=== PATIENT | female | born 1985 | race Caucasian/White ===

== ENCOUNTER 2018-05-17 19:04 | Emergency (ER) | END 2018-05-17 22:07 | disposition home or self-care (01) ==

== ENCOUNTER 2018-10-15 21:20 | Outpatient (CLI) | payer MEDICAID ==
[~2018-10-15] VITALS: Ht 154.9 cm; Wt 92.4 kg
[~2018-10-15 21:20] MED LIST: ACET500C5 PO; PREN1TAB13 PO
[2018-10-15 21:42] VITALS: Ht 154.9 cm; Wt 92.4 kg
[2018-10-15 21:43] VITALS: BP 108/77; PULSE 93; RESP 17
[2018-10-15] MEDS ORDERED: TERBUTALINE 1 MG/ML INJ SC ONE (23:00)
--- NOTE | 2018-10-16 00:50 | PN ---
Triage Information Date/Time 10/16/18 Reason for visit: Uterine contractions Weeks of Gestation 38w /Para Diabetes: none Hypertention: none Additional information [id number] back pain and pelvic pain for 3days after lift heavy object Objective Vital Signs Date Temp Pulse Resp B/P (MAP) Pulse Ox O2 O2 Flow FiO2 Time Delivery Rate 10/15/18 97.8 93 17 108/77 Room Air 21:43 (87) Heart Rate: 140's Heart Rate Comments CAT I Contractions: >10 Minutes Apart Exam closed/long /-3 Results/Medications Results 24 hrs Laboratory Tests Test 10/15/18 22:49 Urine Color YELLOW Urine Clarity SLIGHTLY CLOUDY A Urine pH 7.0 Urine Specific [place] 1.006 Urine Ketones NEGATIVE Urine Nitrite NEGATIVE Urine Bilirubin NEGATIVE Urine Urobilinogen NEGATIVE Urine Leukocyte Esterase TRACE A Urine Microscopic RBC 0 Urine Microscopic WBC 3 Urine Squamous Epithelial Cells FEW Urine Mucus FEW A Urine Hemoglobin NEGATIVE Urine Glucose NEGATIVE Urine Total Protein NEGATIVE Disposition: Discharge Assessment/Plan A IUP 38w R/O labor x1 c/s NIL P discharge home after CMP drawn RTH prn with routine labor instructions JOSE LAL MD Oct 16, 2018 00:49
--- NOTE | 2018-10-16 04:50 | TRIAGE ---
OB Triage Datetime Report Generated by CPN: 10/16/2018 04:50 Datetime: 10/16/2018 00:40 Labor Evaluation Frequency: NONE Monitor Mode: External Resting Tone [place]: Relaxed Heart Rate FHR Baseline Rate: 135 Monitor Mode: External US Variability: Moderate 6-25 bpm Accelerations: 15X15 Decelerations: None Datetime: 10/16/2018 00:00 Labor Evaluation Frequency: X1 IN ONE HOUR Monitor Mode: External Duration (sec)2399: 60 Quality: Mild Resting Tone [place]: Relaxed Heart Rate FHR Baseline Rate: 135 Monitor Mode: External US Variability: Moderate 6-25 bpm Accelerations: 15X15 Decelerations: None Category: Category I Datetime: 10/15/2018 23:00 Labor Evaluation Frequency: X5 IN ONE HOUR Monitor Mode: External Duration (sec)2399: 50-70 Quality: Mild Resting Tone [place]: Relaxed Heart Rate FHR Baseline Rate: 135 Monitor Mode: External US Variability: Moderate 6-25 bpm Accelerations: 15X15 Decelerations: None Category: Category I Datetime: 10/15/2018 22:34 Vaginal Exam Dilatation (cms): 0.0 Effacement (%): 0 Station: -3 Exam By: EM Membrane Status: Intact Datetime: 10/15/2018 22:00 Labor Evaluation Frequency: X1 Monitor Mode: External Duration (sec)2399: 60 Quality: Mild Resting Tone [place]: Relaxed Heart Rate FHR Baseline Rate: 135 Monitor Mode: External US Variability: Moderate 6-25 bpm Accelerations: 15X15 Decelerations: None Category: Category I Datetime: 10/15/2018 21:44 Time of Arrival: 10/15/2018 21:15 EGA: 38.0 Arrived By: Wheelchair Arrived From: Emergency Dept Chief Complaint: PT PRESENTS TO TRIAGE WITH C/O UC'S SINCE 170, VOMITTING AND DIARRHEA Movement: Present Contractions: Irregular Rupture of Membranes: Denies Vaginal Bleeding: None Vaginal Discharge: Denies Recent Sexual Intercouse: Denies Abdominal Trauma: Not Applicable Patient Complaints: Contractions; Back Pain; Vomiting; Other Initial Plan: EFM Datetime: 10/15/2018 21:40 Stage of : OB Triage Assessment Type: Triage Maternal Assessment Level of Consciousness: Fully Conscious DTR's/Clonus: DTRs 2+; No Clonus Headache: Denies Blurred Vision: No Respiratory Effort: Unlabored; Regular Rhythm; Equal Expansion Breath Sounds, Left: Clear and Equal Breath Sounds, Right: Clear and Equal Nausea/Vomiting: Denies RUQ Epigastric Pain: Denies Lower Extremities Edema: None Degree: None Upper Extremities Edema: None Degree: None Facial Edema: None Temperature Route: Oral Fall Risk Assessment History of Falling: (0) No Secondary Diagnosis: (0) No Ambulatory Aid: (0) Bedrest/Nurse Assist IV Therapy: (0) No Gait: (0) Normal/Bedrest/Immobile Mental Status: (0) Oriented to Own Ability Fall Score: 0 Fall Risk Score Definition: No Risk: No action required Pain Assessment Pain Scale: 7 Pain Presence: Intermittent Pain Type: Contraction Pain Location: Abdomen; Back Pain Goal: 3 Pain Relief Measures: Comfort Measures Datetime: 10/15/2018 21:38 Contraction Comments: TOCO APPLIED Comments: US APPLIED Datetime: 07/20/2018 22:59 Fall Score: 0 Fall Risk Score Definition: No Risk: No action required
== END 2018-10-16 00:45 | disposition home or self-care (01) ==
LOC: OBT 21:20 → L-D 21:21 → OBT 10-16 00:45
PROVIDERS: ATTEND Obstetrics & Gynecology
DX: O62.9 Abnormality of forces of labor, unspecified (principal); Z3A.38 38 weeks gestation of pregnancy
CPT/HCPCS: 80053; 81001; 96372; G0463; J3105

== ENCOUNTER 2018-10-22 08:02 | Inpatient (IN) | payer MEDICAID ==
[~2018-10-22] VITALS: Ht 152.4 cm; Wt 92.2 kg
[~2018-10-22 08:02] MED LIST changes: +OXYTOCIN 30 UNITS/LR 500 ML BAG IV ONE
[2018-10-22 09:28] VITALS: BP 116/86; PULSE 85; RESP 18
[2018-10-22] MEDS ORDERED: MISOPROSTOL 200 MCG TAB PR PRN ×2 (09:30→18:30)
[2018-10-22] MEDS ORDERED: METHYLERGONOVINE 0.2 MG INJ IM PRN ×2 (09:30→18:30)
[2018-10-22] MEDS ORDERED: CARBOPROST 250 MCG INJ IM PRN ×2 (09:30→18:30)
[2018-10-22] MEDS ORDERED: OXYTOCIN 30 UNITS/LR 500 ML IV PRN ×2 (09:30→18:30)
[2018-10-22] MEDS: LACTATED RINGER'S 1,000 ML IV SCH ×2 (09:38→15:33)
[2018-10-22 10:01] VITALS: Ht 152.4 cm; Wt 92.2 kg
[2018-10-22] MEDS ORDERED: CEFAZOLIN 2 GM/50 ML (PMX) 50 ML IVPB SCH (10:30)
[2018-10-22] MEDS ORDERED: OXYTOCIN 30 UNITS/LR 500 ML IV SCH ×2 (10:30→18:30)
--- NOTE | 2018-10-22 10:47 | PREAC ---
Date/Time of Note Date/Time of Note DATE: 10/22/18 TIME: 10:46 Anesthesia Eval and Record Evaluation Time Pre-Procedure Interview DATE: 10/22/18 TIME: 10:46 Age 33 Sex female NPO: 8 hrs Preoperative diagnosis Repeat Planned procedure Past Medical History Past Medical History: Includes : : (3), Para: (2), Gestational age: (38) Surgery & Anesthesia Issues No known issue Meds Anticoagulation: No Beta Guillermina within 24 hr: No Reason Beta Guillermina not given: Pt. not on B-Guillermina Active Scripts Acetaminophen* (Tylophen*) 500 Mg Capsule, 1 CAP PO Q6H PRN for PAIN AND OR ELEVATED TEMP, #20 CAP Prov:PATRICIA BARRERA STAFFING ANALYST 05/17/18 Reported Medications Pnv95/Ferrous Fumarate/FA ( Vitamins Tablet) 1 Each Tablet, 1 EACH PO, TAB 07/20/18 Current Medications Lactated Ringer's 1,000 ml @ 125 mls/hr Q8H IV Last administered on 10/22/18at 09:38; Admin Dose 125 MLS/HR; Start 10/22/18 at 09:29 Oxytocin/Lactated Ringer's 500 ml @ 0 mls/hr ONCE PRN IV .VAGINAL BLEEDING; Start 10/22/18 at 09:30 Methylergonovine Maleate (Methergine) 0.2 mg ONCE PRN IM .VAGINAL BLEEDING; Start 10/22/18 at 09:30 Carboprost Tromethamine (Hemabate) 250 mcg ONCE PRN IM .VAGINAL BLEEDING; Start 10/22/18 at 09:30 Misoprostol (Cytotec) 1,000 mcg ONCE PRN DC .VAGINAL BLEEDING; Start 10/22/18 at 09:30 Cefazolin Sodium/ Dextrose 50 ml @ 100 mls/hr ONCE IVPB ; Start 10/22/18 at 10:30 Oxytocin/Lactated Ringer's 500 ml @ 125 mls/hr POST IV ; Start 10/22/18 at 10:30 Meds reviewed: Yes Allergies Coded Allergies: No Known Allergy (Unverified , 07/20/18) Allergies Reviewed: Yes Labs/Studies Labs Reviewed: Reviewed by anesthesiologist Result Diagram: 10/22/18 0840 Laboratory Tests 10/22/18 08:40 Blood Bank Test 10/22/18 08:40 Antibody Screen NEGATIVE Blood Type O POSITIVE Rh Immune Globulin Candidate NO test: Positive Studies: ECG (n/a), CXR (n/a) Pre-procedure Exam Last vitals Vital Signs Date Temp Pulse Resp B/P (MAP) Pulse Ox O2 O2 Flow FiO2 Time Delivery Rate 10/22/18 97.7 85 18 116/86 Room Air 09:28 (96) Airway: Adequate mouth opening, Adequate thyromental dist Mallampati: Mallampati II Teeth: Normal Lung: Normal Heart: Normal ASA Physical Status ASA physical status: 2 Emergency: None Planned Anesthetic Neuraxial: Spinal Planned Pain Management Sub-arachniod narcotics, Parenteral pain med Pre-operative Attestations Prior to commencing anesthesia and surgery, the patient was re-evaluated, there was verification of: *The patient's identity *The results of appropriate recent lab work and preoperative vital signs *The above evaluation not changing prior to induction *Anesthetic plan, risk benefits, alternative and complications discussed with patient/family; questions answered; patient/family understands, accepts and wis hes to proceed. LORENA LANE MD October 22, 2018 10:47
[2018-10-22] MEDS ORDERED: ONDANSETRON 4 MG INJ IV ONE (11:00)
[2018-10-22] MEDS ORDERED: CITRIC ACID/NA CITRATE 30 ML CUP PO ONE (11:00)
--- NOTE | 2018-10-22 13:46 | HP ---
Date/Time of Note Date/Time of Note DATE: 10/22/18 TIME: 13:45 OB - History Hx of Present Free Text/Dictation term Care: Good Care Ultrasounds: Normal mid trimester US Obstetrical Complications: None Medical Complications: None Past Family/Social History * Past Medical, Surgical, Family and Obstetric Histories reviewed from chart. OB Admission Exam Vital Signs Vital Signs Vital Signs Date Temp Pulse Resp B/P (MAP) Pulse Ox O2 O2 Flow FiO2 Time Delivery Rate 10/22/18 97.7 85 18 116/86 Room Air 09:28 (96) Physical Exam HEENT: WNL Heart: Rhythm Normal Lungs: Clear, Equal Abdomen: WNL Extremities: Normal Reflexes: Normal Cervical Dilatation: None Effacement: 0% Membranes: Intact Heart Rate: 130's Accelerations: Accelerations Present Decelerations: No Decelerations Contractions on Admission: None Last 72 hours Lab Results CBC & BMP 10/22/18 08:40 OB Assessment/Plan Reason for admission: section Plan: Section JAZ NAILS MD October 22, 2018 13:46
[2018-10-22] MEDS ORDERED: morphine SULFATE/PF (10 MG/10 ML) INJ ONE (13:55)
[2018-10-22] MEDS ORDERED: OXYTOCIN 10 UNIT INJ ONE (13:55)
[2018-10-22] MEDS ORDERED: PHENYLephrine (100 MCG/ML) 10ML SYG ONE ×2 (13:55→14:45)
[2018-10-22] MEDS ORDERED: DEXAMETHASONE 4 MG/ML 1 ML INJ ONE (14:38)
[2018-10-22] MEDS ORDERED: KETOROLAC 30 MG INJ ONE (14:38)
[2018-10-22] MEDS ORDERED: ONDANSETRON 4 MG INJ ONE (14:38)
[2018-10-22] MEDS ORDERED: METOCLOPRAMIDE 10 MG INJ ONE (14:38)
--- NOTE | 2018-10-22 14:44 | PAC ---
Date/Time of Note Date/Time of Note DATE: 10/22/18 TIME: 14:44 Post-Anesthesia Notes Post-Anesthesia Note Last documented vital signs Vital Signs Date Temp Pulse Resp B/P (MAP) Pulse Ox O2 O2 Flow FiO2 Time Delivery Rate 10/22/18 97.7 85 18 116/86 98 Room Air 14:48 (96) Activity: WNL Respiratory function: WNL Cardiovascular function: WNL Mental status: Baseline Pain reasonably controlled: Yes Hydration appropriate: Yes Nausea/Vomiting absent: Yes LORENA LANE MD October 22, 2018 14:44
[2018-10-22] MEDS ORDERED: EPHEDrine SULFATE 50 MG/5 ML SYG ONE (14:45)
--- NOTE | 2018-10-22 14:49 | OPR ---
Operative Report Planned Procedure Procedure date October 22, 2018 Procedure(s) repeat c/s Performed by see signature line Wheel Press Operator: ALEX CRUMP MD Pre-procedure diagnosis repeat c/s [id number] Anesthesia Type: [id number] spinal Post-Procedure Post-procedure diagnosis repeat c/s Findings Live Baby [], Apgars [] and [], weight [], position [], [] presentation []cord. Estimated Blood Loss: 600 - 700 mls Specimen(s) none Grafts/Implant(s) none Complication(s) none Procedure Description Under satisfactory [] anesthesia, the patient was prepped and draped and placed in a supine position, tilted to the left. Pfannenstiel incision was made, carried through the subcutaneous tissue. Bleeders brought under control with electrocautery. Fascia incised to the length of the incision. Rectus muscles from the fascia, divided midline. Peritoneum exposed, entered through a transverse incision. Exploration of abdomen revealed gravid uterus. Bladder flap was developed. Transverse incision was made in the lower segment of the uterus. Amniotic sac ruptured. [] amniotic fluid noted. [] Nasal oropharyngeal suction was performed. The baby was handed to the team for immediate attention. The placenta was delivered manually intact. Uterine cavity was cleaned with wet sponge and drainage established. Uterus closed in 2 layers using [] in continuous fashion. Peritoneal cavity irrigated with warm saline. Sponge, needle and instrument count reported to be correct. Abdominal peritoneum closed with [] continuously. Rectus muscle approximated with []. Fascia closed with [], and skin closed with ivan. Estimated blood loss []mL. Urine bag contained []mL of urine JAZ NAILS MD October 22, 2018 14:49
[2018-10-22] MEDS ORDERED: HYDROCODONE/APAP (5/325) TAB PO PRN ×2 (15:00→18:30)
[2018-10-22] MEDS ORDERED: ONDANSETRON 4 MG INJ IV PRN (15:00)
[2018-10-22] MEDS ORDERED: HYDROmorphONE 0.5 MG/0.5 ML SYG IV PRN ×2 (15:00)
[2018-10-22] MEDS ORDERED: ACETAMINOPHEN 500 MG TAB PO PRN (15:00)
[2018-10-22] MEDS ORDERED: NALOXONE (0.4 MG/ML) INJ IV PRN (15:00)
[2018-10-22] MEDS ORDERED: DIPHENHYDRAMINE 50 MG INJ IV PRN (15:00)
[2018-10-22] MEDS ORDERED: KETOROLAC 30 MG INJ IV PRN (15:00)
[2018-10-22] MEDS ORDERED: morphine 2 MG INJ IV PRN ×2 (15:00)
[2018-10-22] MEDS ORDERED: NALBUPHINE HCL (10 MG/1 ML) INJ IV PRN (15:00)
[2018-10-22 18:30] VITALS: BP 96/58; PULSE 83; RESP 17
[2018-10-22] MEDS ORDERED: NA PHOSPHATE/BIPHOS 133 ML ENEMA PR PRN (18:30)
[2018-10-22] MEDS ORDERED: NACL 0.9% 3 ML SYG IV SCH (18:30)
[2018-10-22] MEDS ORDERED: LACTATED RINGER'S 1,000 ML IV SCH (18:30)
[2018-10-22] MEDS ORDERED: LANOLIN HPA 1 PKT TOP PRN (18:30)
[2018-10-22 19:45] VITALS: BP 100/56; PULSE 86; RESP 18
[2018-10-22] MEDS: IBUPROFEN 800 MG TAB PO SCH (22:00)
[2018-10-23] VITALS: BP 96/52; PULSE 88; RESP 18
[2018-10-23 04:10] VITALS: BP 96/52; PULSE 88; RESP 16
[2018-10-23] MEDS: IBUPROFEN 800 MG TAB PO SCH ×3 (06:00→22:12)
[2018-10-23 08:30] VITALS: BP 86/51; PULSE 85; RESP 16
[2018-10-23 12:45] VITALS: BP 90/58; PULSE 86; RESP 18
[2018-10-23 16:00] VITALS: BP 93/53; PULSE 86; RESP 18
--- NOTE | 2018-10-23 19:09 | QN ---
Documentation Comment passing flatus no BM vss afebrile fundus firm abdomen soft wound healing lochia min calf neg A s/p Rc/s P as ordered JOSE LAL MD October 23, 2018 19:09
[2018-10-23 20:15] VITALS: BP 90/50; PULSE 85; RESP 18
[2018-10-24 04:10] VITALS: BP 90/59; PULSE 72; RESP 17
[2018-10-24] MEDS: IBUPROFEN 800 MG TAB PO SCH ×3 (05:17→23:19)
[2018-10-24 08:20] VITALS: BP 101/59; PULSE 89; RESP 19
[2018-10-24 16:10] VITALS: BP 99/60; PULSE 88; RESP 18
--- NOTE | 2018-10-24 17:30 | PN ---
Date/Time of Note Date/Time of Note DATE: 10/24/18 TIME: 17:28 OB Subjective Subjective Subjective Past flatus. Reports decreased vaginal bleeding. Denies any shortness of aubree ath or chest pain. Complain of slight more pain in the right side of the incision. Tolerated diet. Ambulating. Denies any other complaint. OB Objective Objective Objective General appearance: Alert and oriented x4 does not appear to be in any acute distress Abdomen: Soft, fundus appropriate tenderness and palpable below the umbilicus Incision: Clean dry and intact Breast: No evidence of mastitis or fissure Extremities: No calf tenderness, no click no edema no cord palpable VS - Last 72 Hours, by Label Date Temp Pulse Resp B/P (MAP) Pulse Ox O2 O2 Flow FiO2 Time Delivery Rate 10/24/18 98.1 89 19 101/59 Room Air 08:20 (73) 10/24/18 98.4 72 17 90/59 (69) Room Air 04:10 10/23/18 98.1 85 18 90/50 (63) Room Air 20:15 10/23/18 99.3 86 18 93/53 (66) 16:00 10/23/18 99.1 86 18 90/58 (69) 95 Room Air 12:45 10/23/18 98.7 85 16 86/51 (63) 94 Room Air 08:30 10/23/18 98.0 88 16 96/52 (67) 96 04:10 10/23/18 98.5 88 18 96/52 (67) Room Air 00:00 10/22/18 98.6 86 18 100/56 96 Room Air 19:45 (71) 10/22/18 98.4 83 17 96/58 (71) 96 Room Air 18:30 10/22/18 97.7 85 18 116/86 Room Air 09:28 (96) OB Assessment/Plan Other Assessment: postoperative day #2 Status post repeat section Doing well Anemia, postop, asymptomatic Routine postop care Iron twice a day with stool softener ALEX CRUMP MD October 24, 2018 17:30
[2018-10-24 20:00] VITALS: BP 101/58; PULSE 82; RESP 20
[2018-10-25 04:45] VITALS: BP 93/53; PULSE 77; RESP 20
[2018-10-25] MEDS: IBUPROFEN 800 MG TAB PO SCH (06:00)
[2018-10-25 08:15] VITALS: BP 118/69; PULSE 85; RESP 20
[2018-10-25] MEDS ORDERED: DIPHTH/TET/ACEL PERTUSS (ADULT) 0.5 ML VIAL IM* ONE (09:00)
[2018-10-25] MEDS ORDERED: MEASLES,MUMPS,RUBELLA VACCINE INJ SC* ONE (09:00)
--- NOTE | 2018-10-25 10:17 | QN ---
Documentation Comment P0D#3 is stable afebrile tolerates diet No VB +BM +voids VS stable Gen NAD Abd soft NT ND Incision intact Genitalia No blood at perineum --->Discharge plan JESSICA MADRID M.D. October 25, 2018 10:17
--- NOTE | 2018-10-25 10:18 | DS ---
Date/Time of Note Date/Time of Note DATE: 10/25/18 TIME: 10:17 Discharge Summary Admission/Discharge Info Admit Date/Time October 22, 2018 at 08:02 Discharge Date/Time 10/25/2018 Discharge Diagnosis Patient Condition: Good Hospital Course uneventful Home Meds Active Scripts Acetaminophen* (Tylophen*) 500 Mg Capsule, 1 CAP PO Q6H PRN for PAIN AND OR ELEVATED TEMP, #20 CAP Prov:PATRICIA BARRERA NP 05/17/18 Reported Medications Pnv95/Ferrous Fumarate/FA ( Vitamins Tablet) 1 Each Tablet, 1 EACH PO, TAB 07/20/18 Primary Care Provider Not On Staff Doctor JESSICA MADRID M.D. October 25, 2018 10:18
--- NOTE | 2018-10-26 13:14 | DELSUM ---
Delivery Summary A-C Datetime Report Generated by CPN: 10/26/2018 13:14 DELIVERY PERSONNEL Roof Bolter: Ghukasyan, Kiesha MATERNAL INFORMATION Delivery Anesthesia: Spinal Medications in Delivery: SEE ANESTHESIA NOTE Delivery QBL (ml): 700 Placenta Cultured: No Maternal Complications: None LABOR SUMMARY EDC: 10/29/2018 00:00 No. Babies in Womb: 1 Attempted: No Labor Anesthesia: None LABOR INFORMATION Reason for Induction: Not Applicable Oxytocin: N/A Group B Beta Strep: Done, Result Unknown Antibiotics # of Doses: 1 Antibiotics Time of Last Dose: 10/22/2018 14:15 Steroids Given: None Reason Steroids Not Administered: Not Applicable MEMBRANES Membranes Rupture Method: Artificial Rupture of Membranes: 10/22/2018 14:29 Length of Rupture (hr): 0.02 Amniotic Fluid Color: Clear Amniotic Fluid Amount: Moderate Amniotic Fluid Odor: None STAGES OF LABOR Stage 3 hr: 0 Stage 3 min: 2 CSECTION DELIVERY Primary Indication: Repeat Elective CSection Urgency: Elective CSection Incidence: Repeat Labor: No Labor Elective: Elective CSection Incision: Lower Uterine Transverse BABY A INFORMATION Infant Delivery Date/Time: 10/22/2018 14:30 Method of Delivery: Born in Route : No : N/A Forceps: N/A Vacuum Extraction: N/A Shoulder Dystocia : N/A SHOULDER DYSTOCIA BABY A Delivery Date/Time: 10/22/2018 14:30 PRESENTATION/POSITION BABY A Presentation: Cephalic Cephalic Presentation: Vertex Vertex Position: Left Occipital Anterior Breech Presentation: N/A PLACENTA INFORMATION BABY A Placenta Delivery Time : 10/22/2018 14:32 Placenta Method of Delivery: Manual Removal Placenta Status: Delivered SCORES BABY A Heart Rate 1 min: >100 bpm Resp Effort 1 min: Good Cry Reflex Irritability 1 min: Cough/Sneeze/Pulls Away Muscle Tone 1 min: Active Motion Color 1 min: Blue/Pale Resuscitation Effort 1 min: Tactile Stimulation SCORE 1 MIN: 8 Heart Rate 5 min: >100 bpm Resp Effort 5 min: Good Cry Reflex Irritability 5 min: Cough/Sneeze/Pulls Away Muscle Tone 5 min: Active Motion Color 5 min: Body [place], Extremit Blue Resuscitation Effort 5 min: Tactile Stimulation SCORE 5 MIN: 9 INFANT INFORMATION BABY A Gestational Age at Delivery: 39.0 Gestational Status: Full Term- 39- 40.6 Weeks Infant Outcome : Liveborn Condition : Stable Sex: Female IDENTIFICATION/MEDS BABY A ID Band Number: [id number] ID Band Location: Right Leg; Left Arm Sensor Applied: Yes Sensor Number: [id number] Sensor Location : Cord Clamp Vitamin K Given : Not Given Erythromycin Given: Not Given WEIGHT/LENGTH BABY A Birthweight (gm): 3580 Weight (lb): 7 Infant Weight (oz): 14 Infant Length (in): 19.00 Length (cm): 48.26 CORD INFORMATION BABY A No. Cord Vessels: 3 Nuchal Cord : N/A Cord Blood Taken: Yes Infant Suction: Mouth; Nose ASSESSMENT BABY A Infant Complications: None Physical Findings at Delivery: Within Normal Limits Respirations: Appears Normal Blade Worker/ALS Called : Yes Infant Care By: RT Transferred To: Remains with Mother
== END 2018-10-25 13:14 | disposition home or self-care (01) | DRG 788 ==
LOC: L-D 08:02 → PP1 18:25
PROVIDERS: ADMIT Obstetrics & Gynecology; ATTEND Obstetrics & Gynecology
PROC: 10D00Z1 Extraction of Products of Conception, Low, Open Approach (ICD-10-PCS; principal; 2018-10-22 12:30)
DX: O34.219 Maternal care for unspecified type scar from previous cesarean delivery (principal); G89.18 Other acute postprocedural pain; O90.81 Anemia of the puerperium; Z3A.38 38 weeks gestation of pregnancy; Z37.0 Single live birth; Z23 Encounter for immunization
CPT/HCPCS: 85025; 85610; 85730; 86592; 86850; 86900; 86901; 87340; 90715; 99464; J0690; J1100; J1885; J2274; J2370; J2405; J2590; J2765; J7120